=== PATIENT | female | born 1970 | race Caucasian/White ===

== ENCOUNTER 2017-04-29 19:36 | Emergency (ER) | payer OTHER ==
[~2017-04-29] VITALS: Ht 167.6 cm; Wt 100.0 kg
[~2017-04-29 19:36] MED LIST: CYCL-36 PO; IBUP-238 PO; NAPR500 PO; ONDA1TAB16 PO; PERC5TAB12 PO
[2017-04-29 19:40] VITALS: BP 177/100; PULSE 96; RESP 18; TEMP 98.9; O2SAT 96
[2017-04-29] MEDS ORDERED: PROP40TA3 PO (20:17)
[2017-04-29] MEDS ORDERED: KETOROLAC TROMETHAMINE 60 MG/2 ML (IM) VIAL IM ONE (21:00)
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
[2017-04-29 21:25] VITALS: BP 149/99
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
[2017-04-29] MEDS ORDERED: CYCL10TA PO (22:06)
[2017-04-29] MEDS ORDERED: TRAM50 PO (22:06)
== END 2017-04-29 22:18 | disposition home or self-care (01) ==
LOC: PHEFT 19:36
DX: S16.1XXA Strain of muscle, fascia and tendon at neck level, initial encounter (principal); S29.012A Strain of muscle and tendon of back wall of thorax, initial encounter; S40.012A Contusion of left shoulder, initial encounter; M41.9 Scoliosis, unspecified; V49.40XA Driver injured in collision with unspecified motor vehicles in traffic accident, initial encounter; Y92.410 Unspecified street and highway as the place of occurrence of the external cause; Z79.899 Other long term (current) drug therapy
CPT/HCPCS: 72125; 72128; 73030; 96372; 99284; J1885